=== PATIENT | female | born 1955 | race Two or more races ===

== ENCOUNTER 2021-08-22 07:58 | Emergency (ER) | payer MEDICARE, MEDICAID, SELFPAY ==
--- NOTE | 2021-08-22 | ECG_ITS ---
Test Reason : CHEST PAIN Blood Pressure : / mmHG Vent. Rate : 069 BPM Atrial Rate : 069 BPM P-R Int : 106 ms QRS Dur : 076 ms QT Int : 402 ms P-R-T Axes : 074 074 076 degrees QTc Int : 430 ms Sinus rhythm with short NV Otherwise normal ECG When compared with ECG of 07-MAY-2006 12:15, No significant change was found Referred By: Generic ED Physician Electronically Signed By:ZORAIDA SAUL
--- NOTE | ~2021-08-22 | XR_ITS ---
EXAMINATION: XR CHEST CLINICAL INFORMATION: Chest pain. COMPARISON: Chest 12/22/2012 TECHNIQUE: Frontal view of the chest was obtained. FINDINGS: The lungs are well-expanded and clear of acute pneumonic process. There is bilateral apical pleural thickening. The heart size and pulmonary vascularity is normal. No gross bony abnormality seen. XR/XR chest 1V IMPRESSION: Unremarkable chest exam.
--- NOTE | ~2021-08-22 | XR_ITS ---
EXAMINATION: XR SHOULDER, LEFT CLINICAL INFORMATION: Left shoulder pain COMPARISON: None TECHNIQUE: Three views of the left shoulder. FINDINGS: There is no evidence of acute fracture or dislocation of the left shoulder. No calcific tendinitis. There appears to be some mild subluxation of the humeral head superiorly which may be indicative of possible rotator cuff injury. Bone island identified in humeral head. XR/XR shoulder LT min 2V IMPRESSION: No acute fracture, dislocation, or calcific tendinitis of the left shoulder.
[2021-08-22 08:21] VITALS: BP 108/67; PULSE 73; RESP 16; TEMP 36.7; O2SAT 100; BMI 19.5
--- NOTE | 2021-08-22 08:39 | ED.GENADULT ---
HPI - General Adult General Chief complaint: Extremity Problem Stated complaint: CHEST PAIN Time Seen by Provider: 08/22/21 08:12 Source: patient Mode of arrival: ambulatory Limitations: no limitations History of Present Illness HPI narrative: Patient with pmh of osteoprosis, psoarisis, and asthma presents to the ED for left shoulder pain that is painful on range of motion radiating to chest for 3 days. Patient was evaluated by her PCP couple of days ago and was informed of that she had arthirts of shoulder. patient denies any shortness of breath, swelling of lower extemities, calf pain, fever, chills, swelling of extremities, or any other concerning symptoms. Related Data Previous Rx's Medication Instructions Recorded naproxen 500 mg tablet 500 mg PO BID PRN #20 tab 08/22/21 Allergies Allergy/AdvReac Type Severity Reaction Status Date / Time No Known Allergies Allergy Unverified 08/15/20 16:22 Review of Systems Constitutional: Constitutional: Reports as per HPI and Reports no additional constitutional complaints Eyes: Eyes: Reports as per HPI and Reports no additional eye complaints ENT: Reports system reviewed and no additional complaints, except as documented and Reports as per HPI Cardiovascular: Cardiovascular: Reports as per HPI and Reports no additional cardiovascular complaints Respiratory: Respiratory: Reports as per HPI and Reports no additional respiratory complaints Gastrointestinal: Gastrointestinal: Reports as per HPI and Reports no additional gastrointestinal complaints Musculoskeletal: Musculoskeletal: Reports no additional musculoskeletal complaints, Reports as per HPI and Reports arthralgias (left shoulder pain) Neurologic: Reports system reviewed and no additional complaints, except as documented and Reports as per HPI Psychiatric: Psychiatric: Reports no additional psychiatric complaints and Reports as per HPI [facility] Past Medical History Medical History (Updated 08/22/21 @ 11:11 by ELÍAS Serra) Arthritis Asthma Osteoporosis Psoriasis Social History Social History Advance Directives: No Advance Directives Information Provided: No Physical Exam Vital Signs: Vital Signs: Last Vital Signs Temp 98.7 F 08/22/21 08:42 Pulse 63 08/22/21 08:42 Resp 14 08/22/21 08:42 BP 102/63 08/22/21 08:42 Pulse Ox 100 08/22/21 08:42 Body Mass Index 19.5 Const: General: cooperative, healthy appearing, comfortable, no acute distress, well developed, alert and awake Orientation/consciousness: patient oriented x3 HENMT: Head: Yes normal to inspection, Yes No palpable skull fracture present, Yes normocephalic, Yes atraumatic and No abrasion Eyes: General: appearance normal, both eyes and all related structures Neck: Neck: Yes normal visual inspection, Yes full ROM, Yes no lymphadenopathy, Yes no meningeal signs, Yes trachea midline, Yes supple and No tender Chest: Chest palpation & inspection: normal inspection of the chest and normal palpation of entire chest wall Resp: Effort & Inspection: normal respiratory effort and able to speak in complete sentences Auscultation: clear to auscultation bilaterally Cardio: Jugular venous distension: no JVD Heart sounds: S1 normal heart sound present and S2 normal heart sound present GI: Inspection: Yes normal to inspection and No abdominal wall ecchymosis Palpation (GI): Soft to palpation, not firm, nontender, no guarding and not rigid : General: No CVA tenderness and Yes no CVA tenderness Back/Spine/Pelvis: Back: no CVA tenderness, No CVA tenderness and No back tenderness Skin: General skin exam: no rashes or lesions noted and elasticity normal Neuro: General: patient oriented x3, gait normal, no meningeal signs and CN's II-XI intact bilaterally Cranial nerves: Yes CN's II-XII intact bilaterally Extrem: General: Yes normal to inspection and Yes full ROM Shoulder/upper arm images: 1. positive for tenderness on palpation. negative for swelling, redness, redness, bluish/black discoloration, deformity, coldness, or hotness. Psych: Appearance: grossly normal, well kempt and not disheveled Course Course Course Narrative: history and physical exam indicate musculoskeletal pain, but will medical work up due to pain Reevaluation(s) Reevaluation #1: EKG negative STEMI. Troponin negative after 2 days of symptoms. Chest x-ray normal. Left shoulder x-ray shows rotator cuff injury. Patient states pain improved after receiving Toradol. BNP negative. Vital signs stable. Not suspecting PE or pneumonia. Patient is safe for discharge. Time: 11:05 Medical Decision Making [facility] Narrative Medical decision making narrative: SHoulder pain. Rotattor cuff injury Lab Data Result diagrams: 08/22/21 08:41 08/22/21 08:41 Labs: Lab Results 08/22/21 08/22/21 08/22/21 Range/Units 08:41 08:41 08:41 WBC 5.3 (4.8-10.8) X10*3/uL RBC 4.64 (4.20-5.50) X10*6/uL Hgb 12.7 (12.0-16.0) g/dl Hct 40.0 (37-47) % MCV 86.2 (80-98) fL MCH 27.4 (27.0-33.0) pg MCHC 31.8 (31.0-35.0) g/dl RDW 14.8 (11.0-16.0) % Plt Count 276 (160-400) X10*3/uL MPV 11.5 (9.4-12.3) fL Immature Gran % (Auto) 0.4 (0.0-0.4) % Neut % (Auto) 54.7 (45-73) % Lymph % (Auto) 34.8 (20-40) % [place] % (Auto) 8.7 (2-11) % Eos % (Auto) 0.8 (0-4) % Baso % (Auto) 0.6 (0-2) % Lymph # (Auto) 1.8 (1.2-4.9) X10*3/uL [place] # (Auto) 0.5 (0.1-1.2) X10*3/uL Eos # (Auto) 0.0 (0.0-0.4) X10*3/uL Baso # (Auto) 0.0 (0.0-0.2) X10*3/uL Abs Immat Gran (auto) 0.02 (0.00-0.03) X10*3/uL Absolute Neuts (auto) 2.9 (2.0-8.3) X10*3/uL Absolute Nucleated RBC 0.000 (0.0-0.012) X10*3/uL Nucleated RBC % (auto) 0.0 (0.0-0.2) /100WBC Sodium 143 (135-145) mmol/L Potassium 3.6 (3.3-5.1) mmol/L Chloride 111 H (96-108) mmol/L Carbon Dioxide 24 (22-29) mmol/L Anion Gap 12 (12-20) BUN 11 (9-16) mg/dL Creatinine 0.77 (0.5-1.4) mg/dL Estim Creat Clear Calc 52.1 Estimated GFR > 60 Random Glucose 105 (60-115) mg/dL Calcium 9.1 (8.4-10.2) mg/dL Total Bilirubin 0.3 (0.0-1.0) mg/dL AST 18 (5-31) U/L ALT 13 (0-31) U/L Alkaline Phosphatase 98 (39-117) U/L Troponin I High Sens < 3.5 (<3.5-17.0) ng/L B-Natriuretic Peptide 42 (<100) pg/mL Total Protein 6.6 (6.5-8.0) g/dL Albumin 4.0 (3.5-5.0) g/dL COVID-19 ([facility]ERGE) (Negative) COVID-19 Clin Com 08/22/21 Range/Units 08:41 WBC (4.8-10.8) X10*3/uL RBC (4.20-5.50) X10*6/uL Hgb (12.0-16.0) g/dl Hct (37-47) % MCV (80-98) fL MCH (27.0-33.0) pg MCHC (31.0-35.0) g/dl RDW (11.0-16.0) % Plt Count (160-400) X10*3/uL MPV (9.4-12.3) fL Immature Gran % (Auto) (0.0-0.4) % Neut % (Auto) (45-73) % Lymph % (Auto) (20-40) % [place] % (Auto) (2-11) % Eos % (Auto) (0-4) % Baso % (Auto) (0-2) % Lymph # (Auto) (1.2-4.9) X10*3/uL [place] # (Auto) (0.1-1.2) X10*3/uL Eos # (Auto) (0.0-0.4) X10*3/uL Baso # (Auto) (0.0-0.2) X10*3/uL Abs Immat Gran (auto) (0.00-0.03) X10*3/uL Absolute Neuts (auto) (2.0-8.3) X10*3/uL Absolute Nucleated RBC (0.0-0.012) X10*3/uL Nucleated RBC % (auto) (0.0-0.2) /100WBC Sodium (135-145) mmol/L Potassium (3.3-5.1) mmol/L Chloride (96-108) mmol/L Carbon Dioxide (22-29) mmol/L Anion Gap (12-20) BUN (9-16) mg/dL Creatinine (0.5-1.4) mg/dL Estim Creat Clear Calc Estimated GFR Random Glucose (60-115) mg/dL Calcium (8.4-10.2) mg/dL Total Bilirubin (0.0-1.0) mg/dL AST (5-31) U/L ALT (0-31) U/L Alkaline Phosphatase (39-117) U/L Troponin I High Sens (<3.5-17.0) ng/L B-Natriuretic Peptide (<100) pg/mL Total Protein (6.5-8.0) g/dL Albumin (3.5-5.0) g/dL COVID-19 ([facility]) Negative (Negative) COVID-19 Clin Com See Note ECG Data Interpretation: Sinus rhythm Vent Rate 69. MA 106. QRS duration 76, and Qtc 430 Discharge Plan Discharge Clinical Impression: Rotator cuff injury, Atypical chest pain Patient Disposition: Home, Self-Care Instructions: Chest Pain (ED), Rotator Cuff Injury (ED) Additional Instructions: Return to the ED immediately for worsening chest or left upper extremity pain, left upper extremity swelling/redness, warmth/coolness, bluish black discoloration, swelling of legs, calf pain, coughing up blood, fever, chills, or any other concerning symptoms. Please follow-up with primary care provider, you may need MRI to rule out rotator cuff tear. Prescriptions: New naproxen 500 mg tablet 500 mg PO BID PRN (Reason: pain) Qty: 20 RF: 0 Interventions: ED Discharge Assessment Last Done: 08/22/21 11:32 Discharge Date/Time: 08/22/21 11:33 Print Language: Polish
[2021-08-22 08:42] VITALS: BP 102/63; PULSE 63; RESP 14; TEMP 37.1; O2SAT 100
[2021-08-22 08:53] LABS: MANUAL DIFF FLAG NO
[2021-08-22 08:56] LABS: Basophils Percent Auto 0.6 % (0-2); Eosinophils Percent Auto 0.8 % (0-4); Hemoglobin 12.7 g/dl (12.0-16.0); Imm Gran Abs Auto 0.02 X10*3/uL (0.00-0.03); Imm Gran Pct Auto 0.4 % (0.0-0.4); Lymphocytes Absolute Auto 1.8 X10*3/uL (1.2-4.9); Lymphocytes Percent Auto 34.8 % (20-40); Mean Corpuscular HGB Conc 31.8 g/dl (31.0-35.0); Mean Corpuscular Hemoglobin 27.4 pg (27.0-33.0); Mean Corpuscular Volume 86.2 fL (80-98); Mean Platelet Volume 11.5 fL (9.4-12.3); Monocytes Absolute Auto 0.5 X10*3/uL (0.1-1.2); Monocytes Percent Auto 8.7 % (2-11); Neutrophils Absolute Auto 2.9 X10*3/uL (2.0-8.3); Neutrophils Percent Auto 54.7 % (45-73); Platelet Count 276 X10*3/uL (160-400); Red Blood Count 4.64 X10*6/uL (4.20-5.50); Red Cell Distribution Width 14.8 % (11.0-16.0); White Blood Count 5.3 X10*3/uL (4.8-10.8)
[2021-08-22 09:14] LABS: Alanine Aminotransferase 13 U/L (0-31); Alkaline Phosphatase 98 U/L (39-117); Anion Gap 12 (12-20); Aspartate Amino Transferase 18 U/L (5-31); Bilirubin Total 0.3 mg/dL (0.0-1.0); Blood Urea Nitrogen 11 mg/dL (9-16); Calcium 9.1 mg/dL (8.4-10.2); Carbon Dioxide 24 mmol/L (22-29); Chloride 111 mmol/L (96-108); Creatinine Clr Calc Pharmacy 52.1; Estimated Glomerular Filt Rate > 60; Glucose Random 105 mg/dL (60-115); Potassium 3.6 mmol/L (3.3-5.1); Sodium 143 mmol/L (135-145); Total Protein 6.6 g/dL (6.5-8.0)
[2021-08-22 09:18] LABS: B Type Natriuretic Peptide 42 pg/mL (<100); Troponin-I High Sensitivity < 3.5 ng/L (<3.5-17.0)
[2021-08-22 09:25] LABS: COVID-19 Test Negative (Negative)
[2021-08-22] MEDS: Ketorolac Tromethamine 15 MG/ML VIAL 30 MG IM (09:59)
== END 2021-08-22 11:33 | disposition home or self-care (01) ==
PROVIDERS: Physician Assistant; Emergency Provider Emergency Medicine
DX: M75.102 Unspecified rotator cuff tear or rupture of left shoulder, not specified as traumatic (principal); R07.9 Chest pain, unspecified; M79.602 Pain in left arm; Z20.822 Contact with and (suspected) exposure to COVID-19; Z79.899 Other long term (current) drug therapy
CPT/HCPCS: 36415; 71045; 73030; 80053; 83880; 84484; 85025; 87635; 93005; 96372; 99284; J1885

== ENCOUNTER 2021-09-02 00:36 | Emergency (ER) | payer MEDICARE, MEDICAID, SELFPAY ==
[2021-09-02 00:41] VITALS: BP 111/76; PULSE 86; PULSE 90; RESP 18; TEMP 37.1; O2SAT 97; O2SAT 98; BMI 17.4
--- NOTE | 2021-09-02 02:34 | ED.GENADULT ---
HPI - General Adult General Chief complaint: General Medical Stated complaint: overdose and nausea Time Seen by Provider: 09/02/21 01:41 Source: patient Mode of arrival: EMS History of Present Illness HPI narrative: 66-year-old female who is brought in by EMS after she was noted to have taken 1 bag of heroin tonight, began snoring and bystander gave 4 mg of nasal Narcan. Patient then developed nausea and vomiting, but at this time denies any headache, shortness of breath, chest pain/palpitations, GI or symptoms and states that she feels better. Related Data Previous Rx's Medication Instructions Recorded naproxen 500 mg tablet 500 mg PO BID PRN #20 tab 08/22/21 Allergies Allergy/AdvReac Type Severity Reaction Status Date / Time No Known Allergies Allergy Unverified 08/15/20 16:22 Review of Systems Review of Systems: Pertinent positives and negatives as stated in HPI 10 point review of systems is otherwise negative. PMFSH Past Medical History Source: nursing notes reviewed Medical History Arthritis Asthma Osteoporosis Psoriasis Social History Social History Advance Directives: No Advance Directives Information Provided: No Physical Exam Vital Signs: Vital Signs: Last Vital Signs Temp 98.7 F 09/02/21 00:41 Pulse 86 09/02/21 00:41 Resp 18 09/02/21 00:41 BP 111/76 09/02/21 00:41 Pulse Ox 97 09/02/21 00:41 Body Mass Index 17.4 VITAL SIGNS: Reviewed. GENERAL: Well developed, well nourished, in no acute distress. HEAD: Normocephalic/atraumatic EYES: PERRLA, EOMI OROPHARYNX: no oral lesions noted, posterior pharynx clear NECK: Supple, no adenopathy LUNGS: Normal breath sounds. No adventitious sounds or accessory muscle use. SpO2<97> CARDIOVASCULAR: Regular rate and rhythm without noted murmurs ABDOMEN: Soft, non-tender, non-distended with bowel sounds. SKIN: Inspection of the skin reveals no rashes NEUROLOGIC: Alert and oriented x 4. Strength and sensation to light touch were grossly intact x 4. Course Course Course Narrative: 66-year-old female with history and clinical presentation consistent with Narcan associated nausea and vomiting and she was provided with Zofran. She then tolerated oral intake and was discharged home in stable condition with home Narcan. Discharge Plan Discharge Clinical Impression: Heroin abuse, Vomiting Patient Disposition: Home, Self-Care Instructions: Narcotic Safety (ED), Narcotic Use Disorder (ED) Additional Instructions: Stop doing drugs Prescriptions: No Action naproxen 500 mg tablet 500 mg PO BID PRN (Reason: pain) Qty: 20 RF: 0 Referrals: Physician,Unknown J [Primary Care Provider] - 2 days
[2021-09-02] MEDS: Naloxone HCl Nasal TAKE HOME 4 MG SPRAY NOSTRILALT (02:41)
== END 2021-09-02 03:22 | disposition home or self-care (01) ==
PROVIDERS: Emergency Provider Student in an Organized Health Care Education/Training Program
DX: T40.1X1A Poisoning by heroin, accidental (unintentional), initial encounter (principal); R11.10 Vomiting, unspecified; Y92.9 Unspecified place or not applicable; Z79.899 Other long term (current) drug therapy; Z71.51 Drug abuse counseling and surveillance of drug abuser
CPT/HCPCS: 99283

== ENCOUNTER 2023-05-25 12:24 | Emergency (ER) | payer MEDICARE, MEDICAID, SELFPAY ==
--- NOTE | ~2023-05-25 | XR_ITS ---
EXAMINATION: XR SHOULDER, LEFT CLINICAL INFORMATION: Dogbite, limited range of motion. COMPARISON: None available. TECHNIQUE: AP external rotation, Grashey, scapular Y, and axillary views of the left shoulder. FINDINGS: The bones and soft tissues are normal. No fracture. Glenohumeral and acromioclavicular alignment is anatomic with normal joint space. No abnormal soft tissue calcifications. XR/XR shoulder LT min 2V IMPRESSION: Unremarkable left shoulder. No radiopaque foreign body.
[2023-05-25 12:29] VITALS: BP 110/70; BP 112/72; PULSE 76; PULSE 78; RESP 18; TEMP 36.4; O2SAT 100; O2SAT 98; BMI 12.2
--- NOTE | 2023-05-25 12:30 | ED.GENADULT ---
HPI - General Adult General Chief complaint: Animal Bite Stated complaint: DOG BITE L SHOULDER Time Seen by Provider: 05/25/23 12:57 Source: patient and RN notes reviewed Mode of arrival: ambulatory Limitations: no limitations History of Present Illness HPI narrative: This is a 67-year-old female, with a past medical history of arthritis, presenting to the emergency department for evaluation of left shoulder dog bite. Patient reports that she was bit by dog by 1 of her neighbors this afternoon. Patient denies any fevers or chills, she is able to move her left shoulder without difficulty. She states that the neighbor's dog is up-to-date with all of his immunizations including rabies. Denies any other complaints or concerns at this time. MD complaint: Dog bite Onset (ago): minute(s) Location: upper extremity Radiation: non-radiation Severity: moderate Quality: aching Relieving factors: none Exacerbating factors: none Associated symptoms: denies other symptoms Treatments prior to arrival: none Related Data Previous Rx's Medication Instructions Recorded naproxen 500 mg tablet 500 mg PO BID PRN pain #20 tabs 08/22/21 amoxicillin 875 mg-potassium 1 tab PO BID 5 days #10 tabs 05/25/23 clavulanate 125 mg tablet Allergies Allergy/AdvReac Type Severity Reaction Status Date / Time No Known Allergies Allergy Unverified 08/15/20 16:22 Review of Systems Review of Systems: Constitutional: No Weight loss, No Fever, No Chills ENT/Mouth: No Ear Pain, No Nasal Congestion, No Sinus Pain, No Hoarseness, No sore throat, No Rhinorrhea, No Swallowing Difficulty Cardiovascular: No Chest Pain, No SOB Respiratory: No Cough, No Sputum, No Wheezing Gastrointestinal: No Nausea, No Vomiting, No Diarrhea, No Constipation, No Abdominal pain Genitourinary: No Dysuria, No Urinary Frequency, No Hematuria, No Urinary Incontinence/retention, No Urgency, No Flank Pain Musculoskeletal: No joint pain, No Myalgias, No Joint Swelling Skin: No Skin Lesions, No rash Neuro: No Weakness, No Numbness, No Paresthesias PMFSH Past Medical History Medical History Arthritis Asthma Osteoporosis Psoriasis Social History Social History Advance Directives: No Physical Exam ED Vital Signs: Vital Signs - 24 hr 05/25/23 12:29 Temperature 97.6 F Pulse Rate 78 Respiratory Rate 18 Blood Pressure 110/70 Pulse Oximetry 100 Oxygen Delivery Method Room Air BMI result Body Mass Index 12.2 Const Other: General: Awake, alert, and oriented X3. No acute distress. HEENT: Normal inspection CVS: Normal heart rate and rhythm. Pulses normal. Respiratory: No respiratory distress Skin: Left posterior shoulder with 2 mm puncture wound, no active drainage or bleeding. No surrounding erythema, ecchymosis, fluctuance or induration Extremities: Normal to inspection Neuro: Oriented X 3. No motor deficit. No sensory deficit. Course Course Course Narrative: This is an RME: Additional HPI, ROS, PE not included below will be deferred to primary provider. Patient is a 67-year-old female presenting to the emergency department with a dog bite to left posterior shoulder. States she was visiting a friend and the dog was at the house, but it is not her friend's dog. Unsure last tetanus. Small puncture wound to left posterior shoulder. Slightly limited ROM with abduction. Plan: x-ray, Tdap Medications Administered Discontinued Medications Generic Name Dose Route Start Last Admin Trade Name Freq PRN Reason Stop Dose Admin Bacitracin 1 appl 05/25/23 13:44 05/25/23 13:49 Bacitracin Oint 0.9 Gm Packet TOPICAL 05/25/23 13:45 1 appl ONCE ONE Administration Protocol Diphtheria/Tetanus/Acell Pertussis 0.5 ml 05/25/23 12:35 05/25/23 13:02 Diphth,Pertus(Acell),Tet Adult 0.5 Ml Syringe IM 05/25/23 12:36 0.5 ml .ONCE ONE Administration Medical Decision Making Medical Decision Making MDM Narrative: This is a 67-year-old female presenting to the emergency department for evaluation of dog bite to her left shoulder which occurred prior to arrival.. Vital signs within normal limits. Left shoulder with 2 mm puncture wound with no surrounding ecchymosis, edema, fluctuance or induration. Full range of motion of the left shoulder. Wound does not require closure, will treat with antibiotics for prophylaxis. Patient reports dog is up-to-date with all of its immunizations. Tdap updated in department today. Wound cleansed with saline, and dressed with bacitracin and bandage Differential Diagnosis Differential Diagnoses: The differential diagnosis associated with the presentation includes Dog bite, cellulitis, laceration, hematoma Discharge Plan Discharge Clinical Impression: Bite by animal, Dog bite Patient Disposition: Home, Self-Care Instructions: Animal Bite (ED) Additional Instructions: Please take prescribed antibiotic as directed. Complete the full course. Keep wound clean and dry. Watch for any signs of infection including but not limited to increased redness, drainage, fevers. If any new or worsening symptoms occur please return for re-evaluation. We updated your tetanus vaccine in department. Prescriptions: New amoxicillin-pot clavulanate 875-125 mg tablet 1 tab PO BID 5 Days Qty: 10 0RF No Action naproxen 500 mg tablet 500 mg PO BID PRN (Reason: pain) Qty: 20 0RF
[2023-05-25] MEDS: Diphth,Pertus(ACell),Tet Adult 0.5 ML SYRINGE IM (13:02)
[2023-05-25] MEDS: Bacitracin Oint 0.9 GM PACKET 1 APPL TOPICAL (13:49)
== END 2023-05-25 13:53 | disposition home or self-care (01) ==
PROVIDERS: Emergency Provider Emergency Medicine; PCP Family Medicine
DX: S41.052A Open bite of left shoulder, initial encounter (principal); S40.212A Abrasion of left shoulder, initial encounter; W54.0XXA Bitten by dog, initial encounter; Y93.9 Activity, unspecified; Y92.9 Unspecified place or not applicable; Y99.9 Unspecified external cause status; Z79.899 Other long term (current) drug therapy; Z23 Encounter for immunization
CPT/HCPCS: 73030; 90471; 90715; 99282; 99284